=== PATIENT | female | born 1955 | race Caucasian/White ===

== ENCOUNTER → 2022-12-09 12:50 | Outpatient (CLI) | payer MEDICARE, SELFPAY ==
--- NOTE | 2022-12-09 | DI.CT.S_ITS ---
PROCEDURE: CT CHEST WO CON INDICATIONS: Malignant neoplasm of unspecified part of bronchus TECHNIQUE: Noncontrast 5 mm thick sections acquired from the pulmonary apices to the posterior costophrenic angles. 1 mm lung window, 5 mm thick coronal and sagittal and 7 mm axial MIP reformats were then acquired. For radiation dose reduction, the following was used: automated exposure control, adjustment of mA and/or kV according to patient size. COMPARISON: [facility], CT, CHEST ABDOMEN PELVIS WITH CONTRAST, 12/21/2006, 8:24. [facility], [place], [place] PET CT FUSION LIMITED AREA, 09/16/2022, 11:21. FINDINGS: Image quality: Excellent. Lungs and pleura: Spiculated pleural-based lateral right apical lung mass with surrounding ground-glass opacity measures roughly 2.3 x 1.6 cm, 3/42. A spiculated perivascular medial right middle lobe nodule measures roughly 2.1 cm on coronal image 23 series 5. Subpleural part solid nodule in the lateral right upper lobe measures 0.8 cm, 3/68. Findings are on a background of mild apical pleural plaquing and centrilobular emphysema. Prior left upper lobectomy. Central and peripheral airways are patent. No pleural effusion or pneumothorax. Mediastinum: Heart size is normal. No pericardial effusion. No mediastinal adenopathy by size criteria. Thoracic aorta and central pulmonary arteries are normal in size. Esophagus is normal in caliber. No hiatal hernia. Bones and chest wall: No suspicious bony lesions. No vertebral body compression fractures. No axillary or supraclavicular adenopathy by size criteria. Thyroid gland has a normal CT appearance . Abdomen: Visualized upper abdominal solid organs and bowel loops appear normal in the absence of contrast. IMPRESSION: 1. Spiculated right upper and right middle lobe lung masses not present on the prior remote chest CT. Right middle lobe lesion corresponds to an FDG avid lesion on recent PET-CT. This is concerning for primary lung carcinoma. Tissue acquisition is recommended, however the lesion in this location is not amenable to percutaneous biopsy. 2. Prior left upper lobectomy. 3. No adenopathy in the chest. Dictated by: Keri Taylor M.D. on 12/09/2022 at 14:34 Approved by: Keri Taylor M.D. on 12/09/2022 at 14:48
== END ==
PROVIDERS: Family Provider Family Medicine Geriatric Medicine; PCP Family Medicine; Referring Provider Family Medicine; Visit Provider Family Medicine
DX: C34.90 Malignant neoplasm of unspecified part of unspecified bronchus or lung (principal); R91.8 Other nonspecific abnormal finding of lung field; J43.2 Centrilobular emphysema; Z85.118 Personal history of other malignant neoplasm of bronchus and lung
CPT/HCPCS: 71250